=== PATIENT | male | born 1995 | race Two or more races ===

== ENCOUNTER 2024-11-15 20:41 | Emergency (ER) | payer BC, MEDICAID ==
[~2024-11-15] VITALS: Ht 188 cm; Wt 130.8 kg
[2024-11-15 20:59] VITALS: BP 137/80; PULSE 88; RESP 20; TEMP 97.8; O2SAT 96
--- NOTE | 2024-11-15 21:14 | ED.PDOC ---
History of Present Illness(SKN Chief Complaint: Puncture Wound Time Seen by MD: 20:48 Primary Care Provider: JESSICA History of Present Illness: Nurses Notes, Medications, Allergies Allergies: Coded Allergies: Cefaclor (Unverified Allergy, Unknown, 12/19/13) Information Source: Patient Mode of Arrival: Ambulatory Past Medical History PAST MEDICAL HISTORY: Denies Surgical History: Denies all surgeries Family History Family History: Unknown Social History Smoker: Non-Smoker Alcohol: Denies ETOH Use Drugs: Denies Drug Use Was a procedure done? Was a procedure done?: No X-Ray, Labs, Meds, VS Vital Signs Date Time Temp Pulse Resp B/P (MAP) Pulse Ox O2 Delivery O2 Flow Rate FiO2 11/15/24 20:59 97.8 88 20 137/80 (99) 96 97.8 Time of 1ST Reevaluation: 21:13 Reevaluation 1ST: Unchanged Departure 1 Departure Disposition: 01 HOME / SELF CARE / HOMELESS Condition: Stable Discharged With: Self Critical Care Note Critical Care Time?: No Stability Stability form required: MARVEL Reyna Nov 15, 2024 21:14
--- NOTE | 2024-11-15 22:00 | DVH ---
EXAM: XY R FOOT 3 VIEW XRAY CLINICAL HISTORY: stepped on nail COMPARISON: None TECHNIQUE: XY R FOOT 3 VIEW XRAY Findings/Impression: 3 views of the right foot. There is no evidence of an acute fracture, dislocation, blastic, or lytic lesions. No radiopaque foreign bodies. No superficial soft tissue abnormalities.
== END 2024-11-15 21:51 | disposition left against medical advice (07) ==
LOC: ER 20:43
DX: S91.331A Puncture wound without foreign body, right foot, initial encounter (principal); Z53.21 Procedure and treatment not carried out due to patient leaving prior to being seen by health care provider
CPT/HCPCS: 73630